=== PATIENT | female | born 2000 | race Caucasian/White ===

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

== ENCOUNTER 2018-06-09 08:35 | Emergency (ER) | payer SELFPAY ==
[~2018-06-09] VITALS: Ht 152.4 cm; Wt 62.6 kg
[2018-06-09 08:43] VITALS: BP 138/88
[2018-06-09] MEDS ORDERED: cefTRIAXone SOD 1,000 MG VL ONE (09:15)
[2018-06-09] MEDS ORDERED: cefTRIAXone SOD 1,000 MG VL IM ONE (09:15)
== END 2018-06-09 09:35 | disposition home or self-care (01) ==
LOC: ER 08:35
DX: H66.93 Otitis media, unspecified, bilateral (principal); J03.90 Acute tonsillitis, unspecified
CPT/HCPCS: 96372; 99283; J0696

== ENCOUNTER 2018-08-18 13:22 | Emergency (ER) | payer MEDICAID ==
[~2018-08-18] VITALS: Ht 152.4 cm; Wt 67.1 kg
[2018-08-18 14:18] LABS: Basophils # (auto) 0 uL; Basophils % (auto) 0.4 % (0.0-2.0); Eosinophils # (auto) 0.1 uL; Hematocrit 38.2 % (36.0-46.0); Hemoglobin 13.1 g/dL (12.2-16.2); Lymphocytes # (auto) 2.2 uL; Lymphocytes % (auto) 28.2 % (10.0-50.0); Mean Corpuscular Hemoglobin 32.9 pg (28.0-32.0); Mean Corpuscular Hgb Conc. 34.2 g/dL (32.0-36.0); Monocytes # (auto) 0.7 uL; Neutrophils # (auto) 4.8 uL; Neutrophils % (auto) 61.4 % (37.0-80.0); Platelet Count (auto) 227 10^3/uL (140-450); Red Blood Cells 3.98 10^6/uL (4.0-5.20); Red Cell Distribution Width 12.7 % (11.8-14.3); White Blood Cell 7.8 10^3/uL (4.4-10.8)
[2018-08-18 16:07] LABS: Urine Amorphous Crystal FEW /hpf (None Seen); Urine Bacteria NONE SEEN /hpf (None Seen); Urine Blood Negative /uL (Negative); Urine Mucus FEW (None Seen); Urine Specific Gravity 1.026 (1.001-1.035); Urine WBC 2 /hpf (0 - 5)
[2018-08-18 17:25] VITALS: BP 113/67
== END 2018-08-18 17:28 | disposition home or self-care (01) ==
LOC: ER 13:29
DX: O20.0 Threatened abortion (principal); Z3A.01 Less than 8 weeks gestation of pregnancy
CPT/HCPCS: 36415; 76801; 81001; 84702; 85025

== ENCOUNTER 2018-11-27 11:10 | Observation (INO) | payer MEDICAID ==
[~2018-11-27] VITALS: Ht 152.4 cm; Wt 68.0 kg
[2018-11-27] MEDS ORDERED: PREN-96 PO (12:05)
[2018-11-27 14:07] LABS: Alcohol, Urine < 3.0 mg/dL (0-5); Amphetamine Screen, Urine NEGATIVE (NEGATIVE); Barbiturate Scree,Urine NEGATIVE (NEGATIVE); Benzodiazephine Screen, Urine NEGATIVE (NEGATIVE); Cannabinoid Screen, Urine POSITIVE (NEGATIVE); Cocaine Screen, Urine NEGATIVE (NEGATIVE); Opiate Scree,Urine NEGATIVE (NEGATIVE); Phencyclidine Screen, Urine NEGATIVE (NEGATIVE)
== END 2018-11-27 12:30 | disposition home or self-care (01) | DRG 566 ==
LOC: LDRP 11:10
PROVIDERS: ADMIT Specialist; ATTEND Specialist
DX: O26.892 Other specified pregnancy related conditions, second trimester (principal); R05 Cough; Z3A.23 23 weeks gestation of pregnancy
CPT/HCPCS: 80307; G0378; 59025; 81002